=== PATIENT | female | born 1975 | race Caucasian/White ===

== ENCOUNTER 2018-09-02 13:21 | Emergency (ER) | payer OTHER ==
[~2018-09-02] VITALS: Ht 165.1 cm; Wt 127.0 kg
[2018-09-02 13:21] VITALS: BP 158/77
[~2018-09-02 13:21] MED LIST: ANAPROX DS550 MG PO; ANTIVERT25 MG PO; CATAFLAM50 MG PO; CYCLOBENZAPRINE5 MG PO; DAYPRO600 M1 PO; FLEXERIL10 MG PO; LYRICA100 M1 PO; METFORMIN HYD1000 MG PO; MOTRIN; MULTIVITAMIN FO1 CAP PO; ROBAXIN500 MG PO; ROBAXIN750 MG PO; SEPTRA DS 800 M1 TAB PO; TYLENOL325 M1 PO; ULTRAM50 MG PO; VICODIN 500 MG-1 TAB PO
== END 2018-09-02 14:50 | disposition home or self-care (01) ==
LOC: ED 13:21
DX: H53.9 Unspecified visual disturbance (principal)